=== PATIENT | female | born 1960 | race Caucasian/White ===

== ENCOUNTER 2016-07-26 22:13 | Emergency (ER) | payer OTHER ==
[2016-07-26 22:19] VITALS: BP 166/64
[2016-07-26] MEDS ORDERED: Ibuprofen TAB* 400 MG PO ONE (22:59)
--- NOTE | 2016-07-26 22:59 | ED ---
Lower Extremity - HPI Summary HPI Summary: Patient presents after missing a step, resulting in a twisted left ankle. She fell forward and hit her right knee as well. She thought she felt a pop in the ankle so she did not try to get up and stand. Her called 911. She denies previous injury to the ankle, but had a right ACL reconstruction 15 years ago which has functioned well. She has mild swelling of the left lateral ankle without obvious bruising. No N/T. The right knee does not have swelling. 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 Mechanism Of Injury: Fall From A Standing Position Onset of Pain: Immediate Onset/Duration: Hours Severity Initially: Moderate Severity Currently: Moderate Pain Intensity: 3 Timing: Constant Location: Is Discrete @ - right knee, left ankle Character Of Pain: Aching, Stiffness Associated Signs And Symptoms: Positive: Swelling - left ankle Aggravating Factor(s): Standing, Ambulation Able to Bear Weight: No - unwilling due to pain - Allergies/Home Medications Allergies/Adverse Reactions: Allergies Allergy/AdvReac Type Severity Reaction Status Date / Time No Known Allergies Allergy Verified 07/26/16 22:59 PMH/Surg Hx/FS Hx/Imm Hx Musculoskeletal History: Reports: Other Musculoskeletal History - right knee ACL reconstruction Infectious Disease History: No Infectious Disease History: Denies: Traveled Outside the [place] in Last 30 Days - Family History Known Family History: Positive: None - Social History Occupation: Employed Full-time Lives: With Family Alcohol Use: Occasionally Substance Use Type: Reports: None Smoking Status (MU): Former Smoker Review of Systems Positive: Myalgia, Decreased ROM - left ankle, Edema - left ankle Negative: Bruising Negative: Paresthesia, Numbness All Other Systems Reviewed And Are Negative: Yes Physical Exam Triage Information Reviewed: Yes Vital Signs On Initial Exam: Initial Vitals Temp Pulse Resp BP Pulse Ox 99.0 F 88 16 166/64 99 07/26/16 22:17 07/26/16 22:17 07/26/16 22:17 07/26/16 22:17 07/26/16 22:17 Vital Signs Reviewed: Yes Appearance: Positive: Well-Appearing, Pain Distress, Obese Skin: Positive: Warm, Skin Color Reflects Adequate Perfusion, Dry, Soft Head/Face: Positive: Normal Head/Face Inspection Eyes: Positive: EOMI, NIGEL, Conjunctiva Clear ENT: Positive: Hearing grossly normal Respiratory/Lung Sounds: Positive: Breath Sounds Present Cardiovascular: Positive: RRR Musculoskeletal: Positive: Limited @ - left ankle movement in all fore planes limited due to pain; right knee extension to 0 flexion to 100 with mild discomfort, Pain @ - TTP left ATFL, non-tender over med/lat malleoli, calcaneus , midfoot and tibia; right knee TTP over LCL, but non-tender over med/lat joint line, patella, popliteal fossa or prox. tibia; neg. Alex, Edema Left - lateral ankle Diagnostics - Vital Signs Vital Signs Temp Pulse Resp BP Pulse Ox 07/26/16 22:17 99.0 F 88 16 166/64 99 - Laboratory Lab Statement: Any lab studies that have been ordered have been reviewed, and results considered in the medical decision making process. - Radiology No standard instances Xray Interpretation: No Acute Changes Radiology Interpretation Completed By: Radiologist - right knee and left ankle: no obvious acute osseous injury Lower Extremity Course/Dx - Diagnoses Differential Diagnosis/HQI/PQRI: Positive: Arthritis, Bursitis, Compartment Syndrome, Contusion, Dislocation, Fracture (Closed), Sprain, Strain Provider Diagnoses: Contusion of right knee, Left ankle sprain Discharge - Discharge Plan Condition: Stable Disposition: HOME Patient Education Materials: Contusion in Adults (ED), Ankle Sprain (ED), Ankle Stirrup Splint (ED) Referrals: Non Staff,Doctor [Primary Care Provider] - Additional Instructions: Wear your splint to protect you as your pain improves. Come out of the splint several times daily to perform gentle range of motion exercises to avoid stiffness. Elevate your ankle above your heart and apply ice for 20 minutes several times daily to decrease swelling and pain. Use ibuprofen 600mg three times daily with meals for the next 3-5 days to decrease swelling and pain as well. Follow-up with your primary care provider in 3-5 days if your symptoms do not begin to improve for evaluation and possible referral to orthopedics. Return to the emergency department if your symptoms worsen.
--- NOTE | 2016-07-27 07:32 | RAD ---
HISTORY: Right knee pain, trauma COMPARISONS: None VIEWS: 4, Frontal, lateral, axial, and oblique views of the right knee FINDINGS: BONE DENSITY: There is diffuse osteopenia. BONES: There is post surgical change to the distal femur and proximal tibia. There is no appreciable displaced fracture. JOINTS: There is mild tricompartmental osteoarthritis. ALIGNMENT: There is no dislocation. SOFT TISSUES: Unremarkable. OTHER FINDINGS: None. IMPRESSION: 1. OSTEOPENIA. 2. POST SURGICAL CHANGE. 3. NO ACUTE OSSEOUS INJURY. IF SYMPTOMS PERSIST, RECOMMEND REPEAT IMAGING.
--- NOTE | 2016-07-27 07:33 | RAD ---
HISTORY: Left ankle pain, trauma COMPARISONS: None VIEWS: 3, Frontal, lateral, and oblique views of the left ankle FINDINGS: BONE DENSITY: Normal. BONES: There is a small bone fragment along the dorsal aspect of the talus. There are calcaneal enthesophytes. JOINTS: There is no arthropathy. ALIGNMENT: There is no dislocation. SOFT TISSUES: Unremarkable. OTHER FINDINGS: None. IMPRESSION: SMALL BONE FRAGMENT ALONG THE DORSAL ASPECT OF THE TALUS SUGGESTIVE OF AVULSION INJURY.
== END 2016-07-27 00:50 | disposition home or self-care (01) ==
LOC: ED 22:13
DX: S80.01XA Contusion of right knee, initial encounter (principal); S93.402A Sprain of unspecified ligament of left ankle, initial encounter; M79.1 Myalgia; Z87.891 Personal history of nicotine dependence; W19.XXXA Unspecified fall, initial encounter; Y93.9 Activity, unspecified; Y92.9 Unspecified place or not applicable
CPT/HCPCS: 99282; A9270-GY